=== PATIENT | female | born 1965 | race Two or more races ===

== ENCOUNTER 2017-04-16 17:12 | Emergency (ER) | payer BC ==
--- NOTE | 2017-04-16 17:43 | ER Document Report ---
HPI - HPI Patient complains to provider of: Clogged ears, nosebleeds Onset: Other - 1 Month Onset/Duration: Persistent Pain Level: 4 Context: 51-year-old diabetic with history of renal transplant is complaining of ears feeling clogged like she is talking in a tunnel. Valsalva does not clear the symptom. She also has had 5 spontaneous nosebleeds this month. benadryl by mouth is not helping. Does not take anticoagulants. Associated Symptoms: None Exacerbated by: Denies Similar symptoms previously: No Recently seen / treated by doctor: No - ROS ROS below otherwise negative: Yes Systems Reviewed and Negative: Yes All other systems reviewed and negative - DERM Skin Color: Normal Past Medical History - General Information source: Patient - Social History Smoking Status: Never Smoker Frequency of alcohol use: None Drug Abuse: None Occupation: formerly named [employer] [facility] [employer] Lives with: Family Family History: Reviewed & Not Pertinent Endocrine Medical History: Reports: Hx Diabetes Mellitus Type 1 Renal/ Medical History: Denies: Hx Peritoneal Dialysis Past Surgical History: Reports: Hx Hysterectomy, Other - Renal transplant Vertical Provider Document - CONSTITUTIONAL Agree With Documented VS: Yes Exam Limitations: No Limitations - INFECTION CONTROL TRAVEL OUTSIDE OF THE [place] IN LAST 30 DAYS: No - HEENT HEENT: Normocephalic. negative: Conjuctival Injection, Pharyngeal Erythema, Tympanic Membrane Red, Tympanic Membrane Bulging Notes: ? serous otitis media on the right. canals normal. inflamed left nares septum, no bleed now - NECK Neck: Supple. negative: Lymphadenopathy-Left, Lymphadenopathy-Right - RESPIRATORY Respiratory: Breath Sounds Normal, No Respiratory Distress O2 Sat by Pulse Oximetry: 97 - CARDIOVASCULAR Cardiovascular: Regular Rate, Regular Rhythm - MUSCULOSKELETAL/EXTREMETIES Musculoskeletal/Extremeties: LEO, FROM Course - Re-evaluation Re-evalutation: 04/16/17 18:43 CBC hgb 10.6, not know what her previous or recent hemoglobin is, I told her to call her primary care Dr. Calles in find out what her last hemoglobin was. She has no symptoms of lightheadedness. she was told to take iron years ago. PT , PTT are normal. - Vital Signs Vital signs: Temp Pulse Resp BP Pulse Ox 98.5 F 73 16 124/66 97 04/16/17 17:16 04/16/17 17:16 04/16/17 17:16 04/16/17 17:16 04/16/17 17:16 - Laboratory Result Diagrams: 04/16/17 18:00 Discharge - Discharge Clinical Impression: Frequent nosebleeds Right serous otitis media Qualifiers: Chronicity: acute Recurrence: not specified as recurrent Qualified Code(s): H65.01 - Acute serous otitis media, right ear Anemia Qualifiers: Anemia type: unspecified type Qualified Code(s): D64.9 - Anemia, unspecified Condition: Good Disposition: HOME, SELF-CARE Instructions: ENT, Nosebleed Instructions ([facility]), Anemia ([facility]), Serous Otitis Media ([facility]) Additional Instructions: call your doctor in the morning and find out what your previous hemoglobin is schedule appointment with your doctor this week The preliminary tests do not show a iron deficiency anemia Copy of labs given to you for your doctor Stevan in [place] take over the counter antihistamine to help the possible fluid behind right ear drum see Ears nose and throat doctor for follow up to resolve the hearing issue Please complete the patient satisfaction survey if you get one, and return it.. If you do not receive a survey, then you can go to the [facility] website, [email or web address] and place your comments about your very good care. Thank you very much. It was a pleasure being your medical provider today. Forms: Return to Work Referrals: CORNELIO AGARWAL PA-C [Primary Care Provider] - Follow up tomorrow
[2017-04-16 18:20] LABS: ABSOLUTE EOSINOPHILS # (AUTO) 0.1 10^3/uL (0.0-0.6); ABSOLUTE LYMPHOCYTES (AUTO) 1.7 10^3/uL (0.5-4.7); ABSOLUTE MONOCYTES (AUTO) 0.6 10^3/uL (0.1-1.4); ABSOLUTE NEUT (AUTO) 4.7 10^3/uL (1.7-8.2); BASOPHILS % (AUTO) 0.4 % (0-2); EOSINOPHILS % (AUTO) 1.2 % (0-6); HEMATOCRIT 31.5 % (36.0-47.0); HEMOGLOBIN 10.6 g/dL (12.0-15.5); HGB HCT DIFFERENCE 0.3; LYMPHOCYTES % (AUTO) 24.4 % (13-45); MEAN CORPUSCULAR HEMOGLOBIN 30.6 pg (27.0-33.4); MEAN CORPUSCULAR HGB CONC 33.5 g/dL (32.0-36.0); MEAN CORPUSCULAR VOLUME 91 fl (80-97); MONOCYTES % (AUTO) 8.1 % (3-13); RED BLOOD COUNT 3.45 10^6/uL (3.72-5.28); RED CELL DISTRIBUTION WIDTH 15.4 % (11.5-14.0); SEGMENTED NEUTROPHILS % (AUTO) 65.9 % (42-78); WHITE BLOOD COUNT 7.1 10^3/uL (4.0-10.5)
[2017-04-16 18:28] LABS: PARTIAL THROMBOPLASTIN TIME 26.1 SEC (23.5-35.8); PROTHROMBIN TIME 12.5 SEC (11.4-15.4)
[2017-04-16 19:11] VITALS: BP 122/66
== END 2017-04-16 19:05 | disposition home or self-care (01) ==
LOC: ER 17:12
DX: H65.01 Acute serous otitis media, right ear (principal); R04.0 Epistaxis; D64.9 Anemia, unspecified; E10.9 Type 1 diabetes mellitus without complications; Z94.0 Kidney transplant status
CPT/HCPCS: 36415; 85025; 85610; 85730; 99283

== ENCOUNTER → 2017-04-21 | Outpatient (CLI) | payer BC ==
--- NOTE | 2017-04-22 16:15 | RADIOLOGY REPORT (SQ) ---
EXAM DESCRIPTION: MRI CERVICAL SPINE WITHOUT COMPLETED DATE/TIME: 04/21/2017 11:02 am REASON FOR STUDY: RADICULOPATHY, CERVICAL REGION M54.12 RADICULOPATHY, CERVICAL REGION COMPARISON: None. TECHNIQUE: Sagittal and Axial imaging includes T1, T2, STIR and gradient echo sequences. LIMITATIONS: None. FINDINGS: ALIGNMENT: Normal. VERTEBRAE: Intact. BONE MARROW: Reactive endplate changes C5-6. DISCS: Loss of height and T2 signal C5-6. HARDWARE: None in the spine. CORD AND BASE OF BRAIN: Normal in size and signal intensity. SOFT TISSUES: No soft tissue masses. C1-C2: No significant spinal stenosis. C2-C3: No significant spinal stenosis or exit foraminal stenosis. C3-C4: . No significant spinal stenosis or exit foraminal stenosis. C4-C5: Small central disc osteophyte complex with minimal anterior flattening of the thecal sac C5-C6: Disc osteophyte complex with anterior flattening of the thecal sac. C6-C7: Disc osteophyte complex with a prominent central and left lateral soft disc component. Marked narrowing the left exit foramina and moderate central canal stenosis. C7-T1: No significant spinal stenosis or exit foraminal stenosis. UPPER THORACIC: Incompletely imaged. No significant spinal stenosis or exit foraminal stenosis. OTHER: No other significant finding. IMPRESSION: C6-7 with large central left paracentral to lateral soft disc osteophyte complex with ma rked narrowing of the left exit foramina and moderate central canal stenosis. Degenerative disc C5-6 with mild central canal stenosis. TECHNICAL DOCUMENTATION: JOB ID: [id number] [employer]- All Rights Reserved
== END ==
LOC: RAD 10:13
PROVIDERS: ATTEND Orthopaedic Surgery
DX: M54.12 Radiculopathy, cervical region (principal)
CPT/HCPCS: 72141

== ENCOUNTER → 2019-05-24 | Outpatient (CLI) | payer OTHER ==
[2019-05-24 09:00] LABS: ABSOLUTE BASOPHILS # (AUTO) 0.1 10^3/uL (0.0-0.2); ABSOLUTE EOSINOPHILS # (AUTO) 0.2 10^3/uL (0.0-0.6); ABSOLUTE LYMPHOCYTES (AUTO) 1.8 10^3/uL (0.5-4.7); ABSOLUTE MONOCYTES (AUTO) 0.5 10^3/uL (0.1-1.4); ABSOLUTE NEUT (AUTO) 3.2 10^3/uL (1.7-8.2); BASOPHILS % (AUTO) 1.1 % (0-2); EOSINOPHILS % (AUTO) 2.9 % (0-6); HEMATOCRIT 36.5 % (36.0-47.0); HEMOGLOBIN 11.9 g/dL (12.0-15.5); LYMPHOCYTES % (AUTO) 31.4 % (13-45); MEAN CORPUSCULAR HEMOGLOBIN 28.8 pg (27.0-33.4); MEAN CORPUSCULAR HGB CONC 32.6 g/dL (32.0-36.0); MEAN CORPUSCULAR VOLUME 89 fl (80-97); MONOCYTES % (AUTO) 9.3 % (3-13); PLATELET COUNT 289 10^3/uL (150-450); RED BLOOD COUNT 4.12 10^6/uL (3.72-5.28); RED CELL DISTRIBUTION WIDTH 14.1 % (11.5-14.0); SEGMENTED NEUTROPHILS % (AUTO) 55.3 % (42-78); TOTAL CELLS COUNTED % (AUTO) 100 %; WHITE BLOOD COUNT 5.8 10^3/uL (4.0-10.5)
[2019-05-24 09:23] LABS: ALBUMIN 4.4 g/dL (3.5-5.0); ALKALINE PHOSPHATASE 116 U/L (38-126); ANION GAP 9 (5-19); ASPARTATE AMINO TRANSFERASE 18 U/L (14-36); BILIRUBIN,DIRECT 0.3 mg/dL (0.0-0.4); BILIRUBIN,TOTAL 0.5 mg/dL (0.2-1.3); BLOOD UREA NITROGEN 26 mg/dL (7-20); CALCIUM 9.9 mg/dL (8.4-10.2); CARBON DIOXIDE 27 mmol/L (22-30); CHLORIDE 100 mmol/L (98-107); CHOLESTEROL 244.16 mg/dL (0-200); GLUCOSE 387 mg/dL (75-110); POTASSIUM 4.8 mmol/L (3.6-5.0); TOTAL PROTEIN 7.2 g/dL (6.3-8.2); TRIGLYCERIDES 78 mg/dL (<150)
[2019-05-24 09:33] LABS: DIRECT LDL 108 mg/dL (<100)
== END ==
LOC: OD 08:05
DX: Z13.9 Encounter for screening, unspecified (principal)
CPT/HCPCS: 36415; 80053; 80061; 83036; 84443; 85025

== ENCOUNTER → 2019-06-04 | Outpatient (CLI) | payer OTHER ==
--- NOTE | 2019-06-04 12:02 | WOMENS IMAGING REPORT ---
EXAM DESCRIPTION: BILAT DIAGNOSTIC MAMMO W/CAD; U/S BREAST UNILAT LIMITED COMPLETED DATE/TIME: 06/04/2019 10:29 am; 06/04/2019 11:04 am REASON FOR STUDY: N63.0 UNSPECIFIED LUMP IN BREAST; LT BREAST N63.0; RT BREAST N63.0 COMPARISON: 2013. EXAM PARAMETERS: Standard craniocaudal and mediolateral oblique views of each breast recorded using digital acquisition. Additional right and left true lateral as well as right and left spot compression imaging. Targeted bilateral breast ultrasound. Read with the assistance of CAD: .[facility] - [employer] Physician Assistant Certified Version 9.2 LIMITATIONS: None. FINDINGS: RIGHT BREAST MASSES: No suspicious masses. CALCIFICATIONS: No new or suspicious calcifications. ARCHITECTURAL DISTORTION: None. DEVELOPING DENSITY: None. ASYMMETRY: None noted. OTHER: No other significant findings. Right breast ultrasound: Scanning is performed in the region of palpable abnormality close to 10- 11 o'clock. There is regional fibroglandular dense tissue but no mass or tissue distortion. LEFT BREAST MASSES: No suspicious masses. CALCIFICATIONS: No new or suspicious calcifications. ARCHITECTURAL DISTORTION: None. DEVELOPING DENSITY: None. ASYMMETRY: None noted. OTHER: No other significant finding. Left breast ultrasound: Scanning of the palpable areas at 2- 3 o'clock and 6 o'clock reveals dense e chogenic fibroglandular tissue but no discrete mass or distortion. IMPRESSION: No worrisome mammographic findings, stable exam. No worrisome findings on ultrasound ev aluation. BREAST DENSITY: c. The breasts are heterogeneously dense, which may obscure small masses. BIRAD: ASSESSMENT: 2 Benign findings. RECOMMENDATION: RECOMMENDED FOLLOW UP: Clinical followup of palpable abnormalities. Otherwise, year ly screening mammography. SPECIFIC INTERVENTION/IMAGING/CONSULTATION RECOMMENDED:No additional intervention/ imaging/consultati on needed at this time. COMMUNICATION:The negative/benign results were communicated to the patient. COMMENT: The patient has been notified of the results by letter per MQSA requirements. Additional no tification policies are in place for contacting patient with suspicious or incomplete findings. Quality ID #225: The [employer] recommends an annual screening mammogram for women aged 40 years or over. This facility utilizes a reminder system to ensure that all patients receive reminder letters, and/or direct phone calls for appointments. This includes reminders for routine scr eening mammograms, diagnostic mammograms, or other Breast Imaging Interventions when appropriate. Th is patient will be placed in the appropriate reminder system. TECHNICAL DOCUMENTATION: FINDING NUMBER: (1) ASSESSMENT: (1) JOB ID: [id number] [employer]- All Rights Reserved Reading location - IP/workstation name: [email or web address]
--- NOTE | 2019-06-04 12:02 | WOMENS IMAGING REPORT ---
EXAM DESCRIPTION: BILAT DIAGNOSTIC MAMMO W/CAD; U/S BREAST UNILAT LIMITED COMPLETED DATE/TIME: 06/04/2019 10:29 am; 06/04/2019 11:04 am REASON FOR STUDY: N63.0 UNSPECIFIED LUMP IN BREAST; LT BREAST N63.0; RT BREAST N63.0 COMPARISON: 2013. EXAM PARAMETERS: Standard craniocaudal and mediolateral oblique views of each breast recorded using digital acquisition. Additional right and left true lateral as well as right and left spot compression imaging. Targeted bilateral breast ultrasound. Read with the assistance of CAD: .[facility] - [employer] Electric[employer] Version 9.2 LIMITATIONS: None. FINDINGS: RIGHT BREAST MASSES: No suspicious masses. CALCIFICATIONS: No new or suspicious calcifications. ARCHITECTURAL DISTORTION: None. DEVELOPING DENSITY: None. ASYMMETRY: None noted. OTHER: No other significant findings. Right breast ultrasound: Scanning is performed in the region of palpable abnormality close to 10- 11 o'clock. There is regional fibroglandular dense tissue but no mass or tissue distortion. LEFT BREAST MASSES: No suspicious masses. CALCIFICATIONS: No new or suspicious calcifications. ARCHITECTURAL DISTORTION: None. DEVELOPING DENSITY: None. ASYMMETRY: None noted. OTHER: No other significant finding. Left breast ultrasound: Scanning of the palpable areas at 2- 3 o'clock and 6 o'clock reveals dense e chogenic fibroglandular tissue but no discrete mass or distortion. IMPRESSION: No worrisome mammographic findings, stable exam. No worrisome findings on ultrasound ev aluation. BREAST DENSITY: c. The breasts are heterogeneously dense, which may obscure small masses. BIRAD: ASSESSMENT: 2 Benign findings. RECOMMENDATION: RECOMMENDED FOLLOW UP: Clinical followup of palpable abnormalities. Otherwise, year ly screening mammography. SPECIFIC INTERVENTION/IMAGING/CONSULTATION RECOMMENDED:No additional intervention/ imaging/consultati on needed at this time. COMMUNICATION:The negative/benign results were communicated to the patient. COMMENT: The patient has been notified of the results by letter per MQSA requirements. Additional no tification policies are in place for contacting patient with suspicious or incomplete findings. Quality ID #225: The [employer] recommends an annual screening mammogram for women aged 40 years or over. This facility utilizes a reminder system to ensure that all patients receive reminder letters, and/or direct phone calls for appointments. This includes reminders for routine scr eening mammograms, diagnostic mammograms, or other Breast Imaging Interventions when appropriate. Th is patient will be placed in the appropriate reminder system. TECHNICAL DOCUMENTATION: FINDING NUMBER: (1) ASSESSMENT: (1) JOB ID: [id number] [employer]- All Rights Reserved Reading location - IP/workstation name: [email or web address]
--- NOTE | 2019-06-04 12:02 | WOMENS IMAGING REPORT ---
EXAM DESCRIPTION: BILAT DIAGNOSTIC MAMMO W/CAD; U/S BREAST UNILAT LIMITED COMPLETED DATE/TIME: 06/04/2019 10:29 am; 06/04/2019 11:04 am REASON FOR STUDY: N63.0 UNSPECIFIED LUMP IN BREAST; LT BREAST N63.0; RT BREAST N63.0 COMPARISON: 2013. EXAM PARAMETERS: Standard craniocaudal and mediolateral oblique views of each breast recorded using digital acquisition. Additional right and left true lateral as well as right and left spot compression imaging. Targeted bilateral breast ultrasound. Read with the assistance of CAD: .[facility] - [employer] Enrichment Specialist Version 9.2 LIMITATIONS: None. FINDINGS: RIGHT BREAST MASSES: No suspicious masses. CALCIFICATIONS: No new or suspicious calcifications. ARCHITECTURAL DISTORTION: None. DEVELOPING DENSITY: None. ASYMMETRY: None noted. OTHER: No other significant findings. Right breast ultrasound: Scanning is performed in the region of palpable abnormality close to 10- 11 o'clock. There is regional fibroglandular dense tissue but no mass or tissue distortion. LEFT BREAST MASSES: No suspicious masses. CALCIFICATIONS: No new or suspicious calcifications. ARCHITECTURAL DISTORTION: None. DEVELOPING DENSITY: None. ASYMMETRY: None noted. OTHER: No other significant finding. Left breast ultrasound: Scanning of the palpable areas at 2- 3 o'clock and 6 o'clock reveals dense e chogenic fibroglandular tissue but no discrete mass or distortion. IMPRESSION: No worrisome mammographic findings, stable exam. No worrisome findings on ultrasound ev aluation. BREAST DENSITY: c. The breasts are heterogeneously dense, which may obscure small masses. BIRAD: ASSESSMENT: 2 Benign findings. RECOMMENDATION: RECOMMENDED FOLLOW UP: Clinical followup of palpable abnormalities. Otherwise, year ly screening mammography. SPECIFIC INTERVENTION/IMAGING/CONSULTATION RECOMMENDED:No additional intervention/ imaging/consultati on needed at this time. COMMUNICATION:The negative/benign results were communicated to the patient. COMMENT: The patient has been notified of the results by letter per MQSA requirements. Additional no tification policies are in place for contacting patient with suspicious or incomplete findings. Quality ID #225: The [employer] recommends an annual screening mammogram for women aged 40 years or over. This facility utilizes a reminder system to ensure that all patients receive reminder letters, and/or direct phone calls for appointments. This includes reminders for routine scr eening mammograms, diagnostic mammograms, or other Breast Imaging Interventions when appropriate. Th is patient will be placed in the appropriate reminder system. TECHNICAL DOCUMENTATION: FINDING NUMBER: (1) ASSESSMENT: (1) JOB ID: [id number] [employer]- All Rights Reserved Reading location - IP/workstation name: [email or web address]
== END ==
LOC: WI 10:00
PROVIDERS: ATTEND Family Medicine
DX: N63.10 Unspecified lump in the right breast, unspecified quadrant (principal)
CPT/HCPCS: 76642; 77066

== ENCOUNTER → 2019-06-05 | Outpatient (CLI) | payer OTHER | LOC: OD 12:03 | DX: E03.9 Hypothyroidism, unspecified (principal) | CPT/HCPCS: 84436 ==

== ENCOUNTER 2019-10-18 09:09 | Emergency (ER) | payer OTHER ==
--- NOTE | 2019-10-18 10:16 | ER Document Report ---
ED Extremity Problem, Lower - General Chief Complaint: Foot Pain Stated Complaint: LEFT FOOT PAIN Time Seen by Provider: 10/18/19 10:01 Primary Care Provider: [facility] [place] [NO LOCAL MD] - Follow up in 3-5 days JAN DOAN JR, DO [ACTIVE PROVISIONAL STAFF] - Follow up in 3-5 days TRAVEL OUTSIDE OF THE [place]. IN LAST 30 DAYS: No - HPI Notes: 54-year-old female to the emergency department with complaints of right foot and ankle pain that began several weeks ago but has gotten progressively worse. She states that she had excruciating pain when she bore weight on the foot yesterday. She states every time she wakes up in the morning she puts her foot down and she has pain. She states that she walks for a little while the pain kind of goes down a little bit. She states that she stands for long periods of time at her job and walks quite a bit. She states that she is diabetic so she is concerned that maybe she has a diabetic issue in the foot. She takes i nsulin. She states that her sugars run anywhere from 300-400. She is trying to get established with a doctor that is more consistent. She has not seen a cargo service supervisor. She denies any redness, swelling, falls. She is not taking anything for her pain. - Related Data Allergies/Adverse Reactions: sulfamethoxazole [From Mayra] Allergy (Verified 04/16/17 17:16) trimethoprim [From Mayra] Allergy (Verified 04/16/17 17:16) vancomycin [Vancomycin] Allergy (Verified 04/16/17 17:16) PET DANDER Allergy (Uncoded 04/16/17 17:16) Home Medications: humalog, Lantus, Lisinopril, PrednisonValacyclovir, Synthroid, Premarin Past Medical History - General Information source: Patient - Social History Smoking Status: Never Smoker Frequency of alcohol use: None Drug Abuse: None Lives with: Family Family History: Reviewed & Not Pertinent Patient has suicidal ideation: No Patient has homicidal ideation: No Endocrine Medical History: Reports: Hx Diabetes Mellitus Type 1 Renal/ Medical History: Denies: Hx Peritoneal Dialysis Past Surgical History: Reports: Hx Hysterectomy, Hx Kidney (Renal Surgery) - kidney transplant 2005, Other - Renal transplant - Immunizations Hx Diphtheria, Pertussis, Tetanus Vaccination: Yes Review of Systems - Review of Systems Constitutional: denies: Chills, Fever EENT: No symptoms reported Cardiovascular: denies: Chest pain, Palpitations, Heart racing, Syncope, Dizziness, Lightheaded Respiratory: denies: Cough, Short of breath Gastrointestinal: denies: Abdominal pain, Diarrhea, Nausea, Vomiting Genitourinary: No symptoms reported Musculoskeletal: See HPI, Joint pain Physical Exam - Vital signs Vitals: Temp Pulse Resp BP Pulse Ox 98.0 F 89 18 153/79 H 100 10/18/19 09:20 10/18/19 09:20 10/18/19 09:20 10/18/19 09:20 10/18/19 09:20 Interpretation: Normal - General General appearance: Appears well, Alert In distress: None - HEENT Head: Normocephalic, Atraumatic Eyes: Normal Pupils: PERRL Ears: Normal External canal: Normal Tympanic membrane: Normal Sinus: Normal Nasal: Normal Mouth/Lips: Normal Pharynx: Normal. No: Potential airway comprom. Neck: Normal, Supple. No: Lymphadenopathy, Meningismus - Respiratory Respiratory status: No respiratory distress Chest status: Nontender Breath sounds: Normal. No: Rales, Rhonchi, Wheezing Chest palpation: Normal - Cardiovascular Rhythm: Regular Heart sounds: Normal auscultation Murmur: No - Abdominal Inspection: Normal Distension: No distension Bowel sounds: Normal Tenderness: Nontender Organomegaly: No organomegaly - Extremities Notes: There is mild tenderness to palpation over the left heel with no edema, skin breakdown, ulceration. The feet bilaterally both look very good and there is no evidence for diabetic skin complications. There is a noted small bunion to the outer left foot. Patient has full range of motion of bilateral lower extremities. When she applies pressure down to her foot on the left foot she has pain. DP pulses are intact and equal. Cap refill is less than 2 seconds. - Neurological Neuro grossly intact: Yes Cognition: Normal Orientation: AAOx4 Declan Coma Scale Eye Opening: Spontaneous [place] Coma Scale Verbal: Oriented [place] Coma Scale Motor: Obeys Commands [place] Coma Scale Total: 15 Speech: Normal Cranial nerves: Normal Cerebellar coordination: Normal. No: Gait ataxia Motor strength normal: LUE, RUE, LLE, RLE Additional motor exam normals: Equal account services analyst. No: Pronator drift Sensory: Normal - Psychological Associated symptoms: Normal affect, Normal mood - Skin Skin Temperature: Warm Skin Moisture: Dry Skin Color: Normal Course - Re-evaluation Re-evalutation: 10/18/19 Noted blood sugar which was addressed with insulin. And has improved. X-rays reassuring. I do think that this is likely plantar fasciitis. Have educated about appropriate footwear, stretching the calf, rolling her foot on frozen water bottle. We will have her follow-up with orthopedist. Will discharge home. Patient agrees with the plan - Vital Signs Vital signs: Temp Pulse Resp BP Pulse Ox 98.1 F 85 16 131/69 H 100 10/18/19 14:27 10/18/19 14:27 10/18/19 14:27 10/18/19 14:27 10/18/19 14:27 - Laboratory Result Diagrams: 10/18/19 11:25 10/18/19 11:25 Laboratory results interpreted by me: 10/18/19 10/18/19 10/18/19 10:19 11:25 11:25 RBC 3.70 L Hgb 11.5 L Hct 33.1 L RDW 14.2 H Lymph % (Auto) 9.9 L Seg Neutrophils % 85.8 H Sodium 135.7 L Glucose 306 H POC Glucose 346 H - Diagnostic Test Radiology reviewed: Image reviewed, Reports reviewed Discharge - Discharge Clinical Impression: Plantar fasciitis of left foot, Hyperglycemia Condition: Stable Disposition: HOME, SELF-CARE Instructions: Hyperglycemia ([facility]) Additional Instructions: Stretch the foot daily with a belt or a yoga strap prior to getting out of bed. Purchase a night splint from [employer] and wear it starting 30 minutes at a time to help stretch her calf. Buy supportive shoes such as a saucony or asics brand. Follow-up with orthopedist. Follow-up with primary care to help better control your diabetes. Return if any worsening symptoms. Prescriptions: Etodolac 200 mg PO BID #20 capsule Forms: Return to Work [facility] [NO [facility]AL MD] - Follow up in 3-5 days JAN DOAN JR, DO [ACTIVE PROVISIONAL STAFF] - Follow up in 3-5 days
[2019-10-18] MEDS ORDERED: INSULIN REG, HUMAN 100 UNIT/ML 3 ML VIAL (PYX) SUBCUT ONE (10:31)
--- NOTE | 2019-10-18 11:16 | RADIOLOGY REPORT (SQ) ---
EXAM DESCRIPTION: FOOT LEFT COMPLETE COMPLETED DATE/TIME: 10/18/2019 10:46 am REASON FOR STUDY: foot pain COMPARISON: None. NUMBER OF VIEWS: Three views. TECHNIQUE: AP, lateral and oblique radiographic images acquired of the left foot. LIMITATIONS: None. FINDINGS: MINERALIZATION: Normal. BONES: No acute fracture or dislocation. Tiny plantar calcaneal spur No worrisome bone lesions. JOINTS: No effusions. SOFT TISSUES: No soft tissue swelling. No foreign body. OTHER: No other significant finding. IMPRESSION: NEGATIVE STUDY OF THE LEFT FOOT. NO RADIOGRAPHIC EVIDENCE OF ACUTE INJURY. TECHNICAL DOCUMENTATION: JOB ID: [id number] [employer]- All Rights Reserved Reading location - IP/workstation name: [facility]
[2019-10-18 11:51] LABS: ABSOLUTE EOSINOPHILS # (AUTO) 0.1 10^3/uL (0.0-0.6); ABSOLUTE LYMPHOCYTES (AUTO) 0.8 10^3/uL (0.5-4.7); ABSOLUTE MONOCYTES (AUTO) 0.3 10^3/uL (0.1-1.4); ABSOLUTE NEUT (AUTO) 7.1 10^3/uL (1.7-8.2); BASOPHILS % (AUTO) 0.3 % (0-2); EOSINOPHILS % (AUTO) 0.6 % (0-6); HEMATOCRIT 33.1 % (36.0-47.0); HEMOGLOBIN 11.5 g/dL (12.0-15.5); LYMPHOCYTES % (AUTO) 9.9 % (13-45); MEAN CORPUSCULAR HEMOGLOBIN 31.1 pg (27.0-33.4); MEAN CORPUSCULAR HGB CONC 34.8 g/dL (32.0-36.0); MEAN CORPUSCULAR VOLUME 89 fl (80-97); MONOCYTES % (AUTO) 3.4 % (3-13); PLATELET COUNT 319 10^3/uL (150-450); RED CELL DISTRIBUTION WIDTH 14.2 % (11.5-14.0); SEGMENTED NEUTROPHILS % (AUTO) 85.8 % (42-78); TOTAL CELLS COUNTED % (AUTO) 100 %; WHITE BLOOD COUNT 8.2 10^3/uL (4.0-10.5)
[2019-10-18 12:02] LABS: ALBUMIN 3.9 g/dL (3.5-5.0); ALKALINE PHOSPHATASE 94 U/L (38-126); ANION GAP 7 (5-19); ASPARTATE AMINO TRANSFERASE 22 U/L (14-36); BILIRUBIN,TOTAL 0.4 mg/dL (0.2-1.3); BLOOD UREA NITROGEN 19 mg/dL (7-20); CALCIUM 9.9 mg/dL (8.4-10.2); CARBON DIOXIDE 28 mmol/L (22-30); CHLORIDE 101 mmol/L (98-107); GLUCOSE 306 mg/dL (75-110); POTASSIUM 4.1 mmol/L (3.6-5.0); TOTAL PROTEIN 6.5 g/dL (6.3-8.2)
[2019-10-18 14:30] VITALS: BP 131/69
== END 2019-10-18 14:32 | disposition home or self-care (01) ==
LOC: ER 09:09
DX: M72.2 Plantar fascial fibromatosis (principal); E10.65 Type 1 diabetes mellitus with hyperglycemia; M79.672 Pain in left foot; M25.571 Pain in right ankle and joints of right foot; Z88.3 Allergy status to other anti-infective agents; Z79.4 Long term (current) use of insulin; Z90.710 Acquired absence of both cervix and uterus; Z94.0 Kidney transplant status
CPT/HCPCS: 99283; 36415; 82962; 85025; 80053; 73630; J1815

== ENCOUNTER → 2020-05-13 | Outpatient (CLI) | payer OTHER ==
[2020-05-13 17:59] LABS: ANION GAP 5 (5-19); BLOOD UREA NITROGEN 19 mg/dL (7-20); CALCIUM 9.7 mg/dL (8.4-10.2); CARBON DIOXIDE 30 mmol/L (22-30); CHLORIDE 103 mmol/L (98-107); GLUCOSE 155 mg/dL (75-110); POTASSIUM 4.8 mmol/L (3.6-5.0)
== END ==
LOC: OD 16:50
PROVIDERS: ATTEND Internal Medicine Hypertension Specialist
DX: Z94.0 Kidney transplant status (principal)
CPT/HCPCS: 36415; 80048